=== PATIENT | male | born 1975 | race Two or more races ===

== ENCOUNTER 2021-07-25 23:42 | Emergency (ER) | payer OTHER ==
[~2021-07-25] VITALS: Ht 170.2 cm; Wt 99.8 kg
[2021-07-26] MEDS ORDERED: VISTARIL50 MG PO (05:21)
== END 2021-07-26 05:43 | disposition home or self-care (01) ==
LOC: ER 23:42
DX: I16.0 Hypertensive urgency (principal); I10 Essential (primary) hypertension; F06.4 Anxiety disorder due to known physiological condition; Z11.52 Encounter for screening for COVID-19

== ENCOUNTER → 2022-05-01 | Emergency (ER) | payer OTHER ==
[~2022-05-01] VITALS: Ht 167.6 cm; Wt 100.7 kg
[~2022-05-01] MED LIST: ACETAMINOPHEN650 M2; VISTARIL50 MG PO
== END | disposition home or self-care (01) ==
LOC: ER 18:53
DX: M54.6 Pain in thoracic spine (principal)

== ENCOUNTER 2022-08-06 22:52 | Emergency (ER) | payer OTHER ==
[~2022-08-06] VITALS: Ht 167.6 cm; Wt 99.8 kg
[2022-08-07] MEDS ORDERED: LOSARTAN POTAS100 MG (00:35)
[2022-08-07] MEDS ORDERED: ZOFRAN8 MG PO (07:20)
[2022-08-07] MEDS ORDERED: PEPCID40 MG PO (07:20)
[2022-08-07] MEDS ORDERED: INTESTINEX680 M1 PO (07:20)
== END 2022-08-07 08:11 ==
LOC: ER 22:52
DX: K52.9 Noninfective gastroenteritis and colitis, unspecified (principal)